=== PATIENT | male | born 1970 | race Caucasian/White ===

== ENCOUNTER 2019-03-06 09:59 | Emergency (ER) | payer MEDICARE, MEDICAID ==
[~2019-03-06] VITALS: Ht 167.6 cm; Wt 76.7 kg
[2019-03-06 10:02] VITALS: BP 161/111
== END 2019-03-07 09:16 ==
LOC: ED 11:30 → UNDOADMIN 12:30 → EDIP 12:30 → ED 03-07 09:16
DX: R45.851 Suicidal ideations (principal); I10 Essential (primary) hypertension; E78.00 Pure hypercholesterolemia, unspecified; F32.9 Major depressive disorder, single episode, unspecified; F20.9 Schizophrenia, unspecified; F17.200 Nicotine dependence, unspecified, uncomplicated
CPT/HCPCS: 36415; 80048; 80307; 81001; 82040; 85025; 87086; 99285

== ENCOUNTER 2019-03-06 13:07 | Inpatient (IN) | payer MEDICARE, MEDICAID ==
[~2019-03-06] VITALS: Ht 167.6 cm; Wt 75.6 kg
[~2019-03-06 13:07] MED LIST: ALPR0.5T6 PO; HYDR50TA13 PO; LISI-167 PO; MULT1TAB76 PO; NICO-485 TD; PERP4TAB6 PO; THIA100T67 PO; [UNRECOGNIZED DRUG - OTHER] PO
[2019-03-06] MEDS ORDERED: BISACODYL 10 MG SUPP PR PRN (13:30)
[2019-03-06] MEDS ORDERED: ACETAMINOPHEN 325 MG TABLET PO PRN (13:30)
[2019-03-06] MEDS ORDERED: POLYETHYLENE GLYCOL 17 GM PACKET PO PRN (13:30)
[2019-03-06] MEDS ORDERED: ONDANSETRON ODT 4 MG PO PRN (13:30)
[2019-03-06] MEDS ORDERED: DOCUSATE 100 MG CAPSULE PO PRN (13:30)
[2019-03-06 14:17] VITALS: BP 170/115
[2019-03-06] MEDS ORDERED: PLEASE ENTER HEIGHT AND WEIGHT MC SCH (14:30)
[2019-03-06] MEDS ORDERED: HYDROXYZINE PAMOATE 50MG CAP PO PRN (15:00)
[2019-03-06] MEDS ORDERED: TRAZODONE 50MG TABLET PO PRN (15:00)
[2019-03-06] MEDS ORDERED: POTASSIUM CHLORIDE 20 MEQ TAB.ER.PRT PO ONE (15:30)
[2019-03-06] MEDS: LISINOPRIL 10 MG TABLET PO SCH (16:37)
[2019-03-06] MEDS: AMLODIPINE 2.5 MG TABLET PO SCH (16:37)
[2019-03-06] MEDS: QUETIAPINE 25MG TABLET PO PRN (16:38)
[2019-03-06] MEDS ORDERED: ZIPRASIDONE 20MG CAPSULE ONE (17:28)
[2019-03-06] MEDS ORDERED: ZIPRASIDONE 20MG CAPSULE PO PRN (17:30)
[2019-03-06] MEDS ORDERED: LORazepam 2 MG/ML, 1ML ONE (17:44)
[2019-03-06] MEDS ORDERED: LORazepam 2 MG/ML, 1ML IM ONE (18:00)
[2019-03-06 18:10] VITALS: BP 126/85
[2019-03-06] MEDS: DIVALPROEX 500 MG TABLET.DR PO SCH (21:00)
[2019-03-06] MEDS ORDERED: ZIPRASIDONE 40MG CAPSULE PO SCH (21:00)
[2019-03-07 07:23] VITALS: BP 125/77
[2019-03-07] MEDS ORDERED: SERTRALINE 50MG TABLET PO SCH (09:00)
[2019-03-07] MEDS ORDERED: NICOTINE 14MG/24 HR PATCH.TD24 TD SCH (09:00)
[2019-03-07] MEDS: LISINOPRIL 10 MG TABLET PO SCH (09:11)
[2019-03-07] MEDS: DIVALPROEX 500 MG TABLET.DR PO SCH ×2 (09:11→21:59)
[2019-03-07] MEDS: AMLODIPINE 2.5 MG TABLET PO SCH (09:11)
[2019-03-07 11:12] LABS: FREE T4 (FREE THYROXINE) 1.14 ng/dL (0.76-1.46); LDL/HDL RATIO 2.2 (0.5-3.0)
[2019-03-07] MEDS: NICOTINE 14MG/24 HR PATCH.TD24 TD SCH (17:59)
[2019-03-07 19:30] VITALS: BP 113/77
[2019-03-07] MEDS: PERPHENAZINE 4 MG TABLET PO SCH (21:59)
[2019-03-08 07:54] VITALS: BP 139/84
[2019-03-08] MEDS: BUPROPION SR 150 MG TABLET PO SCH (08:00)
[2019-03-08] MEDS: AMLODIPINE 2.5 MG TABLET PO SCH (08:00)
[2019-03-08] MEDS: LISINOPRIL 10 MG TABLET PO SCH (08:00)
[2019-03-08] MEDS: DIVALPROEX 500 MG TABLET.DR PO SCH ×3 (08:03→20:08)
[2019-03-08 19:40] VITALS: BP 129/78
[2019-03-08] MEDS: NICOTINE 14MG/24 HR PATCH.TD24 TD SCH (19:48)
[2019-03-08] MEDS: PERPHENAZINE 4 MG TABLET PO SCH (20:05)
[2019-03-09 07:31] VITALS: BP 139/87
[2019-03-09] MEDS: DIVALPROEX 500 MG TABLET.DR PO SCH ×2 (09:00→20:42)
[2019-03-09] MEDS: BUPROPION SR 150 MG TABLET PO SCH (09:33)
[2019-03-09] MEDS: AMLODIPINE 2.5 MG TABLET PO SCH (09:33)
[2019-03-09] MEDS: LISINOPRIL 10 MG TABLET PO SCH (10:11)
[2019-03-09] MEDS: NICOTINE 14MG/24 HR PATCH.TD24 TD SCH (10:12)
[2019-03-09] MEDS: QUETIAPINE 25MG TABLET PO PRN ×2 (12:15→12:27)
[2019-03-09] MEDS: LORazepam 1MG TABLET PO PRN (12:27)
[2019-03-09 19:45] VITALS: BP 118/72
[2019-03-09] MEDS: PERPHENAZINE 4 MG TABLET PO SCH (20:40)
[2019-03-10 07:40] VITALS: BP 147/85
[2019-03-10] MEDS: DIVALPROEX 500 MG TABLET.DR PO SCH ×2 (08:39→21:00)
[2019-03-10] MEDS: AMLODIPINE 2.5 MG TABLET PO SCH (08:42)
[2019-03-10] MEDS: BUPROPION SR 150 MG TABLET PO SCH (08:43)
[2019-03-10] MEDS: LISINOPRIL 10 MG TABLET PO SCH (08:43)
[2019-03-10] MEDS: LORazepam 1MG TABLET PO PRN (16:39)
[2019-03-10] MEDS: NICOTINE 14MG/24 HR PATCH.TD24 TD SCH (17:25)
[2019-03-10 19:46] VITALS: BP 125/78
[2019-03-10] MEDS: PERPHENAZINE 4 MG TABLET PO SCH (20:24)
[2019-03-11 07:20] VITALS: BP 128/82
[2019-03-11] MEDS: DIVALPROEX 500 MG TABLET.DR PO SCH ×2 (09:00→20:36)
[2019-03-11] MEDS: BUPROPION SR 150 MG TABLET PO SCH (09:11)
[2019-03-11] MEDS: LISINOPRIL 10 MG TABLET PO SCH (09:11)
[2019-03-11] MEDS: AMLODIPINE 2.5 MG TABLET PO SCH (09:11)
[2019-03-11] MEDS: LORazepam 1MG TABLET PO PRN ×2 (09:51→16:32)
[2019-03-11] MEDS: NICOTINE 14MG/24 HR PATCH.TD24 TD SCH (18:15)
[2019-03-11 20:05] VITALS: BP 119/74
[2019-03-11] MEDS: PERPHENAZINE 4 MG TABLET PO SCH (20:36)
[2019-03-12 07:28] VITALS: BP 124/82
[2019-03-12] MEDS: AMLODIPINE 2.5 MG TABLET PO SCH (08:30)
[2019-03-12] MEDS: BUPROPION SR 150 MG TABLET PO SCH (08:30)
[2019-03-12] MEDS: DIVALPROEX 500 MG TABLET.DR PO SCH ×2 (08:30→20:29)
[2019-03-12] MEDS: LISINOPRIL 10 MG TABLET PO SCH (08:30)
[2019-03-12] MEDS ORDERED: NICO-486 TD (15:43)
[2019-03-12] MEDS ORDERED: LISI-167 PO (15:43)
[2019-03-12] MEDS ORDERED: AMLO2.5T5 PO (15:43)
[2019-03-12] MEDS ORDERED: BUPR150T73 PO (15:43)
[2019-03-12] MEDS ORDERED: PERP4TAB6 PO (15:43)
[2019-03-12] MEDS ORDERED: HYDR50CA2 PO (15:43)
[2019-03-12] MEDS: NICOTINE 14MG/24 HR PATCH.TD24 TD SCH (17:04)
[2019-03-12 19:48] VITALS: BP 137/86
[2019-03-12] MEDS: PERPHENAZINE 4 MG TABLET PO SCH (20:30)
[2019-03-13 07:41] VITALS: BP 130/79
[2019-03-13] MEDS: BUPROPION SR 150 MG TABLET PO SCH (08:20)
[2019-03-13] MEDS: LISINOPRIL 10 MG TABLET PO SCH (08:20)
[2019-03-13] MEDS: DIVALPROEX 500 MG TABLET.DR PO SCH (08:20)
[2019-03-13] MEDS: AMLODIPINE 2.5 MG TABLET PO SCH (08:20)
== END 2019-03-13 08:49 | disposition home or self-care (01) | DRG 885 ==
LOC: 3E 14:11
PROVIDERS: ADMIT Psychiatry & Neurology Psychosomatic Medicine; ATTEND Psychiatry & Neurology Psychosomatic Medicine
DX: F25.1 Schizoaffective disorder, depressive type (principal); R45.851 Suicidal ideations; F10.10 Alcohol abuse, uncomplicated; F15.10 Other stimulant abuse, uncomplicated; I10 Essential (primary) hypertension; G47.00 Insomnia, unspecified; F17.200 Nicotine dependence, unspecified, uncomplicated; Z79.899 Other long term (current) drug therapy; Z87.820 Personal history of traumatic brain injury
CPT/HCPCS: 36415; 71045; 80048; 80061; 80307; 81001; 82040; 82140; 82607; 84439; 84443; 85025; 85651; 86592; 87086; 93005; 99285; J2060

== ENCOUNTER 2019-04-15 14:05 | Inpatient (IN) | payer MEDICARE, MEDICAID ==
[~2019-04-15] VITALS: Ht 167.6 cm; Wt 73.6 kg
[~2019-04-15 14:05] MED LIST changes: +AMLO2.5T5 PO; +BUPR150T73 PO; +HYDR50CA2 PO; +NICO-486 TD
[2019-04-15] MEDS ORDERED: POLYETHYLENE GLYCOL 17 GM PACKET PO PRN (14:30)
[2019-04-15] MEDS ORDERED: HYDROXYZINE PAMOATE 50MG CAP PO PRN (14:30)
[2019-04-15] MEDS ORDERED: BISACODYL 10 MG SUPP PR PRN (14:30)
[2019-04-15 15:00] VITALS: BP 144/99
[2019-04-15] MEDS ORDERED: PLEASE ENTER HEIGHT AND WEIGHT MC SCH (16:00)
[2019-04-15] MEDS ORDERED: ONDANSETRON ODT 4 MG PO PRN (16:30)
[2019-04-15] MEDS ORDERED: ACETAMINOPHEN 325 MG TABLET PO PRN (16:30)
[2019-04-15 17:09] LABS: ANION GAP 7 mmol/L (5-15); CALCIUM 8.7 mg/dL (8.5-10.1); CHLORIDE 104 mmol/L (98-107); CREATININE 0.99 mg/dL (0.7-1.3); TRIGLYCERIDES 56 mg/dL (50-200); VLDL CHOLESTEROL 11 mg/dL (0-25)
[2019-04-15 17:19] LABS: CHOL/HDL RATIO 3.5; CHOLESTEROL, TOTAL 191 mg/dL (140-239); FREE T4 (FREE THYROXINE) 1.31 ng/dL (0.76-1.46); HDL CHOL % 28 % (26-37); HDL CHOLESTEROL (DIRECT) 54 mg/dL (40-60); LDL CHOLESTEROL,CALCULATED 126 mg/dL (54-169); LDL/HDL RATIO 2.3 (0.5-3.0)
[2019-04-15] MEDS: NICOTINE 14MG/24 HR PATCH.TD24 TD SCH (17:20)
[2019-04-15] MEDS ORDERED: DIPHENHYDRAMINE/ZINC CRM 2%, 30GM TP PRN (17:30)
[2019-04-15 19:30] VITALS: BP 123/76
[2019-04-15] MEDS ORDERED: DOCUSATE 100 MG CAPSULE PO PRN (21:00)
[2019-04-15] MEDS: PERPHENAZINE 4 MG TABLET PO SCH (21:13)
[2019-04-16 07:50] VITALS: BP 144/93
[2019-04-16 09:04] VITALS: BP 113/72
[2019-04-16] MEDS: BUPROPION SR 150 MG TABLET PO SCH (09:04)
[2019-04-16] MEDS ORDERED: PERPHENAZINE 4 MG TABLET PO ONE (12:39)
[2019-04-16] MEDS: NICOTINE 14MG/24 HR PATCH.TD24 TD SCH (13:07)
[2019-04-16 14:28] LABS: MICROSCOPIC NOT IND
[2019-04-16 14:35] LABS: CULTURE INDICATED? NO
[2019-04-16 19:43] VITALS: BP 116/73
[2019-04-16] MEDS: PERPHENAZINE 4 MG TABLET PO SCH (20:45)
[2019-04-17 07:35] VITALS: BP 134/88
[2019-04-17] MEDS: BUPROPION SR 150 MG TABLET PO SCH (09:45)
[2019-04-17] MEDS: NICOTINE 14MG/24 HR PATCH.TD24 TD SCH (12:32)
[2019-04-17 20:35] VITALS: BP 144/93
[2019-04-17] MEDS: PERPHENAZINE 4 MG TABLET PO SCH (20:45)
[2019-04-18 07:42] VITALS: BP 132/86
[2019-04-18] MEDS: BUPROPION SR 150 MG TABLET PO SCH (08:26)
== END 2019-04-18 13:25 | disposition home or self-care (01) | DRG 885 ==
LOC: 3E 14:51
PROVIDERS: ADMIT Psychiatry & Neurology Psychosomatic Medicine; ATTEND Psychiatry & Neurology Psychosomatic Medicine
DX: F25.1 Schizoaffective disorder, depressive type (principal); R45.851 Suicidal ideations; I10 Essential (primary) hypertension; G47.00 Insomnia, unspecified; F10.10 Alcohol abuse, uncomplicated; F15.10 Other stimulant abuse, uncomplicated; F17.210 Nicotine dependence, cigarettes, uncomplicated; F41.9 Anxiety disorder, unspecified; B35.3 Tinea pedis; K59.00 Constipation, unspecified; Z56.0 Unemployment, unspecified; Z59.0 Homelessness; Z82.49 Family history of ischemic heart disease and other diseases of the circulatory system; Z79.899 Other long term (current) drug therapy; Z88.2 Allergy status to sulfonamides; Z88.8 Allergy status to other drugs, medicaments and biological substances; Z91.030 Bee allergy status
CPT/HCPCS: 36415; 80048; 80061; 80307; 81003; 82040; 82140; 84439; 84443; 85025; 86592; 93005; 99284; 92522-GN

== ENCOUNTER 2020-02-26 06:31 | Emergency (ER) | payer MEDICARE, MEDICAID ==
[~2020-02-26] VITALS: Ht 167.6 cm; Wt 74.0 kg
[~2020-02-26 06:31] MED LIST changes: -HYDR50TA13 PO; +HYDR50TA99 PO
--- NOTE | 2020-02-26 06:34 | NUR ---
PT CALLED FOR TRIAGE. PT IN BATHROOM PER SECURITY
[2020-02-26 06:39] VITALS: BP 152/95
--- NOTE | 2020-02-26 08:18 | NUR ---
NO ANSWER WHEN CALLED FOR ROOM.
--- NOTE | 2020-02-26 08:18 | NUR ---
NA X 1
--- NOTE | 2020-02-26 09:20 | NUR ---
NIL X3
== END 2020-02-26 09:21 | disposition left against medical advice (07) ==
LOC: ED 09:15
DX: F28 Other psychotic disorder not due to a substance or known physiological condition (principal); Z53.21 Procedure and treatment not carried out due to patient leaving prior to being seen by health care provider

== ENCOUNTER 2020-02-26 16:01 | Emergency (ER) | payer MEDICARE, MEDICAID ==
[~2020-02-26] VITALS: Ht 167.6 cm; Wt 72.8 kg
[2020-02-26 16:14] VITALS: BP 156/99
== END 2020-02-26 17:08 | disposition home or self-care (01) ==
LOC: ED 16:30
DX: F25.9 Schizoaffective disorder, unspecified (principal); Z76.0 Encounter for issue of repeat prescription; Z72.9 Problem related to lifestyle, unspecified; E78.00 Pure hypercholesterolemia, unspecified; I10 Essential (primary) hypertension
CPT/HCPCS: 99281

== ENCOUNTER 2020-02-27 00:03 | Emergency (ER) | payer MEDICARE, MEDICAID ==
[~2020-02-27] VITALS: Ht 162.6 cm; Wt 71.5 kg
[2020-02-27 00:06] VITALS: BP 117/84
--- NOTE | 2020-02-27 01:06 | NUR ---
CALLED FOR ROOM, NO ANSWER
--- NOTE | 2020-02-27 01:56 | NUR ---
NO ANSWER WHEN CALLED FOR ROOM
--- NOTE | 2020-02-27 02:42 | NUR ---
no answer when called for room, next pt roomed
== END 2020-02-27 03:28 | disposition left against medical advice (07) ==
LOC: ED 03:17
DX: R45.851 Suicidal ideations (principal); Z53.21 Procedure and treatment not carried out due to patient leaving prior to being seen by health care provider

== ENCOUNTER 2020-02-29 00:04 | Emergency (ER) | payer MEDICARE, MEDICAID ==
[~2020-02-29] VITALS: Ht 167.6 cm; Wt 74.1 kg
[2020-02-29 00:06] VITALS: BP 148/93
--- NOTE | 2020-02-29 01:50 | NUR ---
late note for 0150: pt here for refill of B/P medication. pt states that he is here temporarily [place] and that he is unable to see his MD. pt wants lisinopril Rx. pt has no BECK, no dizziness, no loss or change of vision. A&O x4. sitting up in chair in the room. no family at bedside. no apparent distress
--- NOTE | 2020-02-29 02:15 | NUR ---
late note for 0215: this pt was D/C by another RN
== END 2020-02-29 01:58 | disposition home or self-care (01) ==
LOC: ED 00:30
DX: F20.9 Schizophrenia, unspecified (principal); Z76.0 Encounter for issue of repeat prescription; I10 Essential (primary) hypertension
CPT/HCPCS: 99281

== ENCOUNTER 2020-04-10 02:29 | Emergency (ER) | payer MEDICARE, MEDICAID ==
[~2020-04-10] VITALS: Ht 170.2 cm; Wt 73.4 kg
--- NOTE | 2020-04-10 02:36 | NUR ---
NO ANSWER WHEN CALLED FOR TRIAGE
[2020-04-10 02:40] VITALS: BP 151/92
--- NOTE | 2020-04-10 02:52 | NUR ---
PT HERE FOR WELLBUTRIN RX REFILL. DENIES ANY MEDICAL C/O AT THIS TIME. PT CONNECTED TO [id number]
== END 2020-04-10 03:46 | disposition home or self-care (01) ==
LOC: ED 03:44
DX: F41.1 Generalized anxiety disorder (principal); Z76.0 Encounter for issue of repeat prescription; Z72.9 Problem related to lifestyle, unspecified; F17.210 Nicotine dependence, cigarettes, uncomplicated; I10 Essential (primary) hypertension; E78.00 Pure hypercholesterolemia, unspecified; F20.9 Schizophrenia, unspecified; F32.9 Major depressive disorder, single episode, unspecified
CPT/HCPCS: 99281; 99406